=== PATIENT | female | born 1935 | race Caucasian/White ===

== ENCOUNTER → 2018-01-21 | Outpatient (CLI) | payer MEDICARE, SELFPAY ==
[2018-01-23 03:17] LABS: Source UN
== END | disposition home or self-care (01) ==
LOC: LAB 14:30
PROVIDERS: Family Medicine
DX: Z12.72 Encounter for screening for malignant neoplasm of vagina (principal); Z90.710 Acquired absence of both cervix and uterus
CPT/HCPCS: G0145

== ENCOUNTER → 2018-02-03 | Outpatient (CLI) | payer MEDICARE, SELFPAY | END | disposition home or self-care (01) | LOC: PLD 14:19 → LAB SHORT 14:19 | DX: C44.42 Squamous cell carcinoma of skin of scalp and neck (principal) | CPT/HCPCS: 88305 ==

== ENCOUNTER 2024-08-14 14:33 | Inpatient (IN) | payer OTHER ==
[~2024-08-14] VITALS: Ht 160 cm; Wt 61.6 kg
[~2024-08-14 14:33] MED LIST: ALLO300 PO; DICL75ER PO; EUTHYROX25 MC1 PO; GABA100 PO; HYDCHL25 PO; LEVE500 PO; LOSA50 PO; PANTOPRAZOLE SO40 M2 PO; ROSUVASTATIN CAL5 MG PO
[2024-08-14 15:16] LABS: BASOPHILS ABSOLUTE AUTO 0.01 K/mm3 (0.00-0.23); BASOPHILS PERCENT AUTO 0 % (0-2); EOSINOPHILS PERCENT AUTO 0 % (0-6); Hematocrit 36.7 % (33.0-51.0); Hemoglobin 12.5 g/dL (11.5-16.0); IMMATURE GRAN ABSOLUTE AUTO 0.02 K/mm3 (0.00-0.10); IMMATURE GRAN PERCENT AUTO 0 % (0-1); LYMPHOCYTES ABSOLUTE AUTO 0.13 K/mm3 (0.84-5.20); LYMPHOCYTES PERCENT AUTO 2 % (21-46); MONOCYTES ABSOLUTE AUTO 0.11 K/mm3 (0.16-1.47); MONOCYTES PERCENT AUTO 2 % (4-13); Mean Corpuscular HGB 37.1 pg (26.0-34.0); Mean Corpuscular HGB Conc 34.1 g/dL (31.5-36.5); Mean Corpuscular Volume 109 fL (80-100); Mean Platelet Volume 9.3 fL (9.1-12.4); NEUTROPHILS ABSOLUTE AUTO 6.69 K/mm3 (1.96-9.15); NEUTROPHILS PERCENT AUTO 96 % (41-73); Platelet Count 243 K/mm3 (150-400); RDW Coefficient Variation 12.6 % (11.7-14.2); RDW Standard Deviation 50.4 fL (35.1-46.3); Red Blood Cell Count 3.37 M/mm3 (3.80-5.20); White Blood Cell Count 6.96 K/mm3 (4.00-11.30)
[2024-08-14 15:29] LABS: Albumin, Blood 2.9 g/dL (3.4-5.0); Albumin/Globulin Ratio 1.1 (0.8-1.8); Bilirubin, Total 1.2 mg/dL (0.1-1.0); Bun/Creatinine Ratio 10.5 (12.0-20.0); Calcium, Blood 8.9 mg/dL (8.5-10.1); Creatinine, Blood 1.52 mg/dL (0.40-1.00); Globulin, Blood 2.7 g/dL (2.2-4.0); Potassium, Blood 3.4 mmol/L (3.5-5.5); Total Protein, Blood 5.6 g/dL (6.4-8.2)
[2024-08-14] MEDS ORDERED: NS 1,000 ML IV SCH ×3 (15:55→19:35)
[2024-08-14 17:03] LABS: Influenza A, PCR NEGATIVE (NEGATIVE); Influenza B, PCR NEGATIVE (NEGATIVE); Resp Syncytial Virus, PCR NEGATIVE (NEGATIVE); SARS-Cov-2 (COVID-19) PCR, MMC NEGATIVE (NEGATIVE)
[2024-08-14] MEDS ORDERED: Azithromycin 250 MG Tab PO ONE (17:45)
[2024-08-14] MEDS ORDERED: CefTRIAXone Sodium 1,000 MG in NS 100 ML IV ONE (17:45)
[2024-08-14] MEDS ORDERED: Ondansetron HCl 2 MG / ML 2ML Vial IV ONE (18:30)
[2024-08-14] MEDS ORDERED: Loperamide HCl 2 MG Cap PO PRN (19:35)
[2024-08-14] MEDS ORDERED: Ondansetron HCl 2 MG / ML 2ML Vial IV PRN (19:35)
[2024-08-14] MEDS ORDERED: Acetaminophen 325 MG TABLET PO PRN (19:35)
[2024-08-14] MEDS ORDERED: Ipratropium/Albuterol SulF 2.5-0.5MG/3 ML Amp INH PRN (19:40)
[2024-08-14] MEDS ORDERED: Potassium Chl 20MEQ/Water100ML 100 ML IV STA (19:41)
[2024-08-14] MEDS ORDERED: Enoxaparin 30 MG/0.3 ML SYR SC SCH (20:00)
[2024-08-14 23:09] VITALS: BP 102/51
[2024-08-15 03:14] VITALS: BP 104/46
[2024-08-15 03:40] LABS: BASOPHILS ABSOLUTE AUTO 0.02 K/mm3 (0.00-0.23); BASOPHILS PERCENT AUTO 0 % (0-2); EOSINOPHILS PERCENT AUTO 0 % (0-6); Hematocrit 30.6 % (33.0-51.0); Hemoglobin 10.5 g/dL (11.5-16.0); IMMATURE GRAN ABSOLUTE AUTO 0.06 K/mm3 (0.00-0.10); IMMATURE GRAN PERCENT AUTO 0 % (0-1); LYMPHOCYTES ABSOLUTE AUTO 0.24 K/mm3 (0.84-5.20); LYMPHOCYTES PERCENT AUTO 2 % (21-46); MONOCYTES ABSOLUTE AUTO 0.36 K/mm3 (0.16-1.47); MONOCYTES PERCENT AUTO 2 % (4-13); Mean Corpuscular HGB 36.1 pg (26.0-34.0); Mean Corpuscular HGB Conc 34.3 g/dL (31.5-36.5); Mean Corpuscular Volume 105 fL (80-100); Mean Platelet Volume 9.5 fL (9.1-12.4); NEUTROPHILS ABSOLUTE AUTO 14.98 K/mm3 (1.96-9.15); NEUTROPHILS PERCENT AUTO 96 % (41-73); Platelet Count 200 K/mm3 (150-400); RDW Coefficient Variation 12.5 % (11.7-14.2); RDW Standard Deviation 47.9 fL (35.1-46.3); Red Blood Cell Count 2.91 M/mm3 (3.80-5.20); White Blood Cell Count 15.66 K/mm3 (4.00-11.30)
[2024-08-15 04:08] LABS: Albumin, Blood 2.6 g/dL (3.4-5.0); Bilirubin, Total 0.8 mg/dL (0.1-1.0); Bun/Creatinine Ratio 16.4 (12.0-20.0); Calcium, Blood 8.2 mg/dL (8.5-10.1); Creatinine, Blood 1.4 mg/dL (0.40-1.00); Globulin, Blood 2.7 g/dL (2.2-4.0); Potassium, Blood 3.7 mmol/L (3.5-5.5); Total Protein, Blood 5.3 g/dL (6.4-8.2)
--- NOTE | 2024-08-15 05:12 | NUR ---
SHIFT SUMMARY ASSUMED CARE OF PT ON 08/14/24 AT APPROXIMATELY 2300. PT IS A&O X4, ABLE TO MAKE NEEDS KNOWN. VSS, AFEBRILE, BP STABLE, SPO2 >92% ON 1-2L NC WHILE ASLEEP. PT DENIES CP, ONLY ENDORSES SOB WITH EXERTION. NS INFUSING AT 75ML/HR. PT NPO EXCEPT FOR ICE CHIPS, WATER, AND MEDICATIONS UNTIL FURTHER NOTICE. PT IS RESTING QUIETLY IN BED, CALL LIGHT WITHIN REACH, BREATHING EVEN AND UNLABORED.
[2024-08-15] MEDS ORDERED: Levothyroxine Sodium 0.025 MG Tab PO SCH (06:00)
[2024-08-15] MEDS ORDERED: Pantoprazole Sodium 40 MG Tab PO SCH (06:00)
[2024-08-15 07:53] VITALS: BP 101/44
[2024-08-15] MEDS ORDERED: levETIRAcetam 500 MG in NS 100 ML IV SCH (09:00)
[2024-08-15] MEDS ORDERED: Allopurinol 300 MG Tab PO SCH (09:00)
[2024-08-15] MEDS ORDERED: Losartan Potassium 25 MG Tab PO SCH (09:00)
[2024-08-15 11:39] VITALS: BP 124/46
--- NOTE | 2024-08-15 14:21 | NUR ---
Transfer of care Pt alert, oriented x4; [place] and reporting macular degeneration. 1 person assist. Pt denies pain, chest pain/pressure, sob, nausea, dizziness and numb/tingling. Tele sinus, bp soft, held losartan this am, trending up. Spo2 >90% on 1-2l o2 via nc. Abd soft, nontender, +bt noted. Other vss. No other acute changes noted. Report given to oncoming rn.
[2024-08-15 17:07] VITALS: BP 131/72
[2024-08-15] MEDS ORDERED: Azithromycin 500 MG in NS 250 ML IV SCH (18:00)
[2024-08-15] MEDS ORDERED: CefTRIAXone Sodium 1,000 MG in NS 100 ML IV SCH (18:00)
--- NOTE | 2024-08-15 18:08 | NUR ---
CARE ASSUMPTION/SHIFT SUMMARY CARE ASSUMED FROM BHANU Paniagua RN, THIS AFTERNOON. PT A&OX4. SP02>90% ON RA WHILE AWAKE. DESAT TO MID 80'S WHILE SLEEPING, PLACED ON 2L NC. VSS. PT UP TO BATHROOM SBA TO VOID. ABX INFUSING PER EMAR. PT C/O OF BEING COLD, AFEBRILE. WARM BLANKET AND HEATING PAD APPLIED. PT TOOK LONG NAP THIS AFTERNOON AFTER HEAT APPLIED. PT UP IN RECLINER TO EAT LUNCH. FAMILY IN ROOM T/O DAY. CALL LIGHT IN REACH.
[2024-08-15 19:16] VITALS: BP 113/49
[2024-08-15 20:57] LABS: Source, Urine Clean Catch
[2024-08-15 21:08] LABS: Bilirubin, Urine Neg (Neg); Blood, Urine 1+ (Neg); Glucose Qualitative, Urine Neg (Neg); Ketones, Urine Neg (Neg); Leukocyte Esterase, Urine Neg (Neg); Nitrite, Urine Neg (Neg); Protein, Urine 1+ (Neg); Urobilinogen, Urine NORM (Normal)
[2024-08-15 21:13] LABS: Appearance, Urine Clear (Clear); Color, Urine Pale Yellow (P-Yellow)
[2024-08-15 21:14] LABS: Squamous Epithelial Cells Few /hpf (Few)
[2024-08-15 21:15] LABS: Bacteria Few /hpf; Hyaline Casts 0-2 /lpf (0-2)
[2024-08-15 23:23] VITALS: BP 131/54
[2024-08-16 03:00] VITALS: BP 128/108
[2024-08-16 04:10] LABS: BASOPHILS ABSOLUTE AUTO 0.02 K/mm3 (0.00-0.23); BASOPHILS PERCENT AUTO 0 % (0-2); EOSINOPHILS ABSOLUTE AUTO 0.03 K/mm3 (0.00-0.68); EOSINOPHILS PERCENT AUTO 0 % (0-6); Hematocrit 26.8 % (33.0-51.0); Hemoglobin 9.2 g/dL (11.5-16.0); IMMATURE GRAN ABSOLUTE AUTO 0.04 K/mm3 (0.00-0.10); IMMATURE GRAN PERCENT AUTO 0 % (0-1); LYMPHOCYTES PERCENT AUTO 3 % (21-46); MONOCYTES ABSOLUTE AUTO 0.33 K/mm3 (0.16-1.47); MONOCYTES PERCENT AUTO 3 % (4-13); Mean Corpuscular HGB 36.4 pg (26.0-34.0); Mean Corpuscular HGB Conc 34.3 g/dL (31.5-36.5); Mean Corpuscular Volume 106 fL (80-100); Mean Platelet Volume 9.9 fL (9.1-12.4); NEUTROPHILS ABSOLUTE AUTO 10.98 K/mm3 (1.96-9.15); NEUTROPHILS PERCENT AUTO 93 % (41-73); Platelet Count 172 K/mm3 (150-400); RDW Coefficient Variation 12.6 % (11.7-14.2); RDW Standard Deviation 49.2 fL (35.1-46.3); Red Blood Cell Count 2.53 M/mm3 (3.80-5.20)
[2024-08-16 04:35] LABS: Bun/Creatinine Ratio 22.2 (12.0-20.0); Calcium, Blood 8.3 mg/dL (8.5-10.1); Creatinine, Blood 0.99 mg/dL (0.40-1.00); Potassium, Blood 3.2 mmol/L (3.5-5.5)
--- NOTE | 2024-08-16 05:01 | NUR ---
SHIFT SUMMARY PT IS A&O X4, ABLE TO MAKE NEEDS KNOWN. VSS, AFEBRILE, BP STABLE, SPO2 >92% ON 2L NC WHILE ASLEEP. PT DENIES CP OR SOB. UA COLLECTED THIS SHIFT. PT WITHOUT N/V/D. PT IS RESTING QUIETLY IN BED, CALL LIGHT WITHIN REACH, BREATHING EVEN AND UNLABORED.
[2024-08-16 07:29] VITALS: BP 131/64
[2024-08-16] MEDS ORDERED: Potassium Chloride 20 MEQ TabCR PO ONE ×2 (08:00→18:15)
[2024-08-16 16:07] VITALS: BP 132/51
--- NOTE | 2024-08-16 17:51 | NUR ---
Shift Summary Pt alert, oriented x4; calm and cooperative with care. Up with 1 person assist to recliner and bsc. Up to chair with all meals. 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 Pt denies chest pain/pressure, sob, nausea, dizziness. Tele sinus 70-100's, 9 beat run of vtach noted. Pt refused to take potassium this am; notified Dr Trejo, discussed with patient and she is willing to take dose now; new orders entered for potassium and labs. Spo2 >90% on ra while awake, desaturates while sleeping, 1l o2 via nc while sleeping. Abd soft, nontender, + bt noted. Other vss. No other acute changes noted. Will continue to monitor.
[2024-08-16 19:48] VITALS: BP 134/61
[2024-08-16] MEDS ORDERED: Allopurinol 300 MG Tab PO SCH (21:00)
--- NOTE | 2024-08-16 21:18 | NUR ---
ASSUMPTION OF CARE AFTER RECEIVING REPORT FROM BHANU NEW, THIS RN ASSUMED CARE AT APPROX 1915. PATIENT ALERT AND ORIENTED X4. COMMUNICATES NEEDS EFFECTIVELY. REPORTS VISION DIFFICULTIES RELATED TO HX OF MACULAR DEGENERATION. MOVES ALL EXTREMITIES EQUALLY WITH GENERALIZED WEAKNESS - IS A SBA WITH FWW TO RESTROOM, CHAIR. REPOSITIONS HERSELF INDEPENDENTLY IN BED. AFEBRILE. TELEMETRY SHOWING SINUS 80s. RATE DOES INCREASE TO 100s-110s WITH MOBILITY - ASYMPTOMATIC. DENIES CHEST PAIN, PRESSURE. BP STABLE, SBP 130s. MAP >65. ON ROOM AIR AT ASSUMPTION OF CARE, SATs 88-90%. PLACED ON 2L VIA NC, SATs >90%. RR EVEN, UNLABORED. CALL LIGHT IN REACH.
[2024-08-16 21:59] LABS: Bun/Creatinine Ratio 19.5 (12.0-20.0); Calcium, Blood 8.8 mg/dL (8.5-10.1); Creatinine, Blood 0.92 mg/dL (0.40-1.00); Magnesium, Blood 1.1 mg/dL (1.6-2.4); Potassium, Blood 3.8 mmol/L (3.5-5.5)
[2024-08-16] MEDS ORDERED: Magnesium Sulf 2 GM/Water 50ML 50 ML IV ONE (22:05)
[2024-08-17 02:46] VITALS: BP 135/65
[2024-08-17 04:23] LABS: BASOPHILS ABSOLUTE AUTO 0.02 K/mm3 (0.00-0.23); BASOPHILS PERCENT AUTO 0 % (0-2); EOSINOPHILS ABSOLUTE AUTO 0.06 K/mm3 (0.00-0.68); EOSINOPHILS PERCENT AUTO 1 % (0-6); Hematocrit 26.9 % (33.0-51.0); Hemoglobin 9.3 g/dL (11.5-16.0); IMMATURE GRAN ABSOLUTE AUTO 0.05 K/mm3 (0.00-0.10); IMMATURE GRAN PERCENT AUTO 1 % (0-1); LYMPHOCYTES PERCENT AUTO 7 % (21-46); MONOCYTES PERCENT AUTO 4 % (4-13); Mean Corpuscular HGB 36.3 pg (26.0-34.0); Mean Corpuscular HGB Conc 34.6 g/dL (31.5-36.5); Mean Corpuscular Volume 105 fL (80-100); Mean Platelet Volume 10.1 fL (9.1-12.4); NEUTROPHILS ABSOLUTE AUTO 9.03 K/mm3 (1.96-9.15); NEUTROPHILS PERCENT AUTO 88 % (41-73); Platelet Count 166 K/mm3 (150-400); RDW Coefficient Variation 12.2 % (11.7-14.2); RDW Standard Deviation 47.5 fL (35.1-46.3); Red Blood Cell Count 2.56 M/mm3 (3.80-5.20); White Blood Cell Count 10.26 K/mm3 (4.00-11.30)
[2024-08-17 04:34] LABS: Bun/Creatinine Ratio 18.7 (12.0-20.0); Calcium, Blood 8.6 mg/dL (8.5-10.1); Creatinine, Blood 0.86 mg/dL (0.40-1.00); Potassium, Blood 3.7 mmol/L (3.5-5.5)
[2024-08-17 04:57] LABS: Magnesium, Blood 1.8 mg/dL (1.6-2.4)
--- NOTE | 2024-08-17 05:17 | NUR ---
SHIFT SUMMARY NO ACUTE EVENTS SINCE ASSUMPTION OF CARE NOTE. PATIENT SLEPT T/O NIGHT, EASILY AROUSABLE WITH VERBAL STIMULI. AFEBRILE. DENIES PAIN. TELEMETRY SHOWING SINUS 70s WITH RATE INCREASES TO 90s-100s WITH MOBILITY. BP STABLE, SBP 130s. DENIES CHEST PAIN, PRESSURE. MAGNESIUM LEVEL INCREASED FROM 1.1 TO 1.8 FOLLOWING 2GM IV MAGNESIUM ADMINISTERED PER EMAR. ON 2L VIA NC T/O NIGHT, SATs >90%. ATTEMPTED TO TITRATE OXYGEN USE TO BASELINE ROOM - SATs 87-89% ON ROOM AIR. UP TO RESTROOM WITH ONE PERSON, SBA WITH FWW. VOIDING. NO BM THIS SHIFT. REPOSITIONS HERSELF INDEPENDENTLY IN BED. CALL LIGHT IN REACH. WILL CONTINUE TO MONITOR AND REPORT TO ONCOMING RN.
[2024-08-17 07:37] VITALS: BP 140/64
[2024-08-17] MEDS ORDERED: Voltaren100 GM TOP (09:11)
--- NOTE | 2024-08-17 09:41 | NUR ---
ASSUMPTION OF CARE FROM BONNIE NEW THIS MORNING ABOUT 0715. THE PT WAS ON 2LNC WHILE ASLEEP. WHEN WOKEN UP HER SP02 >96%. SHE WAS TRIALED ON RA AND DESATURATED TO UPPER 80'S. THE PT WAS PLACED ON 1L NC TO MAINTAIN SP02 90-93%. SHE IS SHALLOW BREATHING AND WAS GIVEN AN INCETIVE SPIROMETER AND ENCOURAGE TO USE IS ABOUT 3 TIMES AN HOUR. THE PT WAS EDUCATED ON THE IMPORTANCE OF TAKING DEEP BREATHS, GETTING OOB, SITTING UP IN THE CHAIR FOR ALL MEALS, AND GOOD ORAL HYGIENE TO PREVENT WORSENING RESP SYMPTOMS. HER VS ARE STABLE. ON TELE SHE IS SR W/ PAC'S 90'S. THE PT REPORTS CHRONIC LEFT KNEE PAIN. SHE FAVORS HER LEFT LEG WHEN AMBUALITNG WITH THE WALKER. THE PT HAS GLASSES IN HER DISPOSITION AND HAS POOR EYESITE. VERBAL EDUCATION IS PREFERED TO WRITTEN EDUCATION. THE PT'S DAUGHTER CALLED THIS MORNING AND WAS UPDATED ON CARE. BED IN LOW AND CALL LIGHT IN REACH. SEE NOTES FOR UPDATES.
--- NOTE | 2024-08-17 11:31 | NUR ---
I SPOKE WITH DR. LESLIE ABOUT PT'S REQUIRMENT OF OXYGEN EVEN WHILE AWAKE AND CRACKLES T/O HER LUNGS. HE STATED HE WAS GOING TO PUT IN AN ORDER FOR A REPEAT CHEST XRAY.
[2024-08-17] MEDS ORDERED: VOLTAREN TOP PRN (11:35)
--- NOTE | 2024-08-17 12:38 | NUR ---
PT WILL BE TRANSFERING TO ROOM 338. HEIDE, PT'S DAUGHTER, UPDATED ON TRANSFER. THE PT REMAINS A&OX4, AND CALLS APPROPRAITELY, AND IS A 1P TX W/ FWW. SHE IS ON 1L NC WHILE AWAKE W/ SP02 >90%. WAITING ON A REPEAT CHEST XRAY AT THIS TIME. SHE IS HAVING A FLARE OF HER LEFT KNEE PAIN THIS AFTERNOON AND REQUESTED TYLENOL. THE PT'S DAUGHTER WILL BRING IN A TOPICAL PAIN RELIEF RUB THIS AFTERNOON FOR THE LEFT KNEE. ORDER OBTAINED. ON TELE SHE IS SR W/ PAC'S 90'S. NO ACUTE EVENTS THIS MORNING.
--- NOTE | 2024-08-17 13:45 | NUR ---
ASSUMED CARE AT 1345. PATIENT TRANSFERRED FROM WHEELCHAIR TO BED WELL. CURRENTLY ON 2L O2. VSS. COMPLAINS OF PAIN TO HER BACKSIDE, JUST RECEIVED APAP PRIOR TO TRANSFER. GAVE PT A WARM BLANKET. CURRENTLY RESTING IN BED. BED IN THE LOWEST POSITION. CALL LIGHT WITHIN REACH.
[2024-08-17 13:59] LABS: Magnesium, Blood 1.6 mg/dL (1.6-2.4); Phosphorus, Blood 1.6 mg/dL (2.5-4.9); Potassium, Blood 3.4 mmol/L (3.5-5.5)
[2024-08-17] MEDS ORDERED: Potassium Phos/Sodium Phos 250 MG PACK PO ONE (15:00)
[2024-08-17 16:10] VITALS: BP 154/74
[2024-08-17] MEDS ORDERED: NS 250 ML IV PRN (17:30)
[2024-08-17 20:24] VITALS: BP 144/75
[2024-08-18 02:34] VITALS: BP 139/88
--- NOTE | 2024-08-18 05:32 | NUR ---
SHIFT SUMMARY PT A&OX4 AND ANSWERS QUESTIONS APPROPRIATELY. PT RECEIVED ALL SCHEDULED MEDICATIONS. PT ABLE TO AMBULATE 1P TO THE BR. PT VSS, NO COMPLAINTS OF CP/PRESSURE OR SOB. PT SPENT MOST OF SHIFT IN BED WITH EYES CLSOED AND RESPIRATIONS EVEN AND UNLABORED. NO ACUTE EVENTS AT THIS TIME. PT REPOSITIONED INDEPENDENTLY. PT LEFT IN A POSITION OF SAFETY WITH FALL PRECAUTIONS IN PLACE AND CALL LIGHT IN REACH.
[2024-08-18 05:42] LABS: BASOPHILS ABSOLUTE AUTO 0.02 K/mm3 (0.00-0.23); BASOPHILS PERCENT AUTO 0 % (0-2); EOSINOPHILS ABSOLUTE AUTO 0.11 K/mm3 (0.00-0.68); EOSINOPHILS PERCENT AUTO 1 % (0-6); Hematocrit 27.1 % (33.0-51.0); Hemoglobin 9.5 g/dL (11.5-16.0); IMMATURE GRAN ABSOLUTE AUTO 0.03 K/mm3 (0.00-0.10); IMMATURE GRAN PERCENT AUTO 0 % (0-1); LYMPHOCYTES ABSOLUTE AUTO 0.95 K/mm3 (0.84-5.20); LYMPHOCYTES PERCENT AUTO 10 % (21-46); MONOCYTES ABSOLUTE AUTO 0.61 K/mm3 (0.16-1.47); MONOCYTES PERCENT AUTO 7 % (4-13); Mean Corpuscular HGB 35.8 pg (26.0-34.0); Mean Corpuscular HGB Conc 35.1 g/dL (31.5-36.5); Mean Corpuscular Volume 102 fL (80-100); Mean Platelet Volume 9.6 fL (9.1-12.4); NEUTROPHILS ABSOLUTE AUTO 7.66 K/mm3 (1.96-9.15); NEUTROPHILS PERCENT AUTO 82 % (41-73); Platelet Count 177 K/mm3 (150-400); RDW Coefficient Variation 12.2 % (11.7-14.2); RDW Standard Deviation 46.2 fL (35.1-46.3); Red Blood Cell Count 2.65 M/mm3 (3.80-5.20); White Blood Cell Count 9.38 K/mm3 (4.00-11.30)
[2024-08-18 06:14] LABS: Bun/Creatinine Ratio 13.3 (12.0-20.0); Calcium, Blood 8.7 mg/dL (8.5-10.1); Creatinine, Blood 0.83 mg/dL (0.40-1.00); Potassium, Blood 3.4 mmol/L (3.5-5.5)
[2024-08-18 07:58] VITALS: BP 128/67
[2024-08-18] MEDS ORDERED: Potassium Chloride 20 MEQ TabCR PO ONE (09:00)
[2024-08-18] MEDS ORDERED: LevETIRAcetam 500 MG Tab PO SCH (09:00)
[2024-08-18 13:00] LABS: Magnesium, Blood 1.2 mg/dL (1.6-2.4); Phosphorus, Blood 1.7 mg/dL (2.5-4.9); Potassium, Blood 3.5 mmol/L (3.5-5.5)
[2024-08-18 15:40] VITALS: BP 151/64
--- NOTE | 2024-08-18 18:20 | NUR ---
SHIFT SUMMARY PATIENT DENIES PAIN, NAUSEA, AND SHORTNESS OF BREATH. WEANED TO ROOM AIR, MAINTINAING OXYGEN SATURATION ABOVE 94%. VOLTAREN CREAM TO L KNEE X1. UP SBA TO BR W/FWW. ALERT AND ORIENTED. PT CHRIS COMPLETED, SBA IN ROOM W/FWW. IND AT BASELINE. INSTRUCTED IN USE OF FLUTTER VALVE.
[2024-08-18 19:16] VITALS: BP 153/80
[2024-08-18] MEDS ORDERED: Potassium Phosphate Dibasic 20 MM in Dextrose 5% 500 ML IV STA (20:19)
[2024-08-18] MEDS ORDERED: Magnesium Sulf 2 GM/Water 50ML 50 ML IV ONE (20:25)
[2024-08-18] MEDS ORDERED: GuaiFENesin 600 MG TabCR PO SCH (21:00)
[2024-08-18] MEDS ORDERED: Magnesium Oxide 400 MG Tab PO SCH (22:00)
[2024-08-19 03:40] VITALS: BP 144/69
--- NOTE | 2024-08-19 06:02 | NUR ---
Shift Summary Pt rcvd replacement IV Phosphorus and PO magnesium after I contacted the hospitalist about their low labs. No acute changes in condition t/o shift. Pt is AOx4, 1 SBA w FWW to BR. No c/o of pain or nausea. Reinforced education on incentive spirometer.
[2024-08-19 07:30] LABS: BASOPHILS ABSOLUTE AUTO 0.03 K/mm3 (0.00-0.23); BASOPHILS PERCENT AUTO 0 % (0-2); EOSINOPHILS ABSOLUTE AUTO 0.27 K/mm3 (0.00-0.68); EOSINOPHILS PERCENT AUTO 3 % (0-6); Hematocrit 26.8 % (33.0-51.0); Hemoglobin 9.5 g/dL (11.5-16.0); IMMATURE GRAN ABSOLUTE AUTO 0.05 K/mm3 (0.00-0.10); IMMATURE GRAN PERCENT AUTO 1 % (0-1); LYMPHOCYTES ABSOLUTE AUTO 1.06 K/mm3 (0.84-5.20); LYMPHOCYTES PERCENT AUTO 13 % (21-46); MONOCYTES ABSOLUTE AUTO 0.79 K/mm3 (0.16-1.47); MONOCYTES PERCENT AUTO 10 % (4-13); Mean Corpuscular HGB 36.3 pg (26.0-34.0); Mean Corpuscular HGB Conc 35.4 g/dL (31.5-36.5); Mean Corpuscular Volume 102 fL (80-100); Mean Platelet Volume 10.1 fL (9.1-12.4); NEUTROPHILS ABSOLUTE AUTO 5.79 K/mm3 (1.96-9.15); NEUTROPHILS PERCENT AUTO 72 % (41-73); Platelet Count 192 K/mm3 (150-400); RDW Coefficient Variation 12.1 % (11.7-14.2); RDW Standard Deviation 45.7 fL (35.1-46.3); Red Blood Cell Count 2.62 M/mm3 (3.80-5.20); White Blood Cell Count 7.99 K/mm3 (4.00-11.30)
[2024-08-19 07:56] VITALS: BP 124/76
[2024-08-19 08:00] LABS: Bun/Creatinine Ratio 12.6 (12.0-20.0); Calcium, Blood 8.6 mg/dL (8.5-10.1); Creatinine, Blood 0.71 mg/dL (0.40-1.00); Magnesium, Blood 1.1 mg/dL (1.6-2.4); Potassium, Blood 3.7 mmol/L (3.5-5.5)
[2024-08-19] MEDS ORDERED: Magnesium Sulf 2 GM/Water 50ML 50 ML IV ONE (11:40)
[2024-08-19 15:39] VITALS: BP 122/75
[2024-08-19 16:36] LABS: Magnesium, Blood 1.7 mg/dL (1.6-2.4)
[2024-08-19 16:39] LABS: Bun/Creatinine Ratio 12.7 (12.0-20.0); Creatinine, Blood 0.94 mg/dL (0.40-1.00); Potassium, Blood 3.7 mmol/L (3.5-5.5)
[2024-08-19] MEDS ORDERED: MAGNESIUM OXID500 MG PO (17:23)
[2024-08-19] MEDS ORDERED: CEFD300 PO (17:23)
== END 2024-08-19 17:51 | disposition home or self-care (01) | DRG 871 ==
LOC: ER 14:33 → PCU 19:03 → ERHOLD 19:03 → PCU 23:04 → MEDS 08-17 13:35
PROVIDERS: Emergency Medicine; Internal Medicine; ADMIT Internal Medicine
DX: A41.9 Sepsis, unspecified organism (principal); J18.9 Pneumonia, unspecified organism; J96.01 Acute respiratory failure with hypoxia; I95.9 Hypotension, unspecified; K21.9 Gastro-esophageal reflux disease without esophagitis; M10.9 Gout, unspecified; I12.9 Hypertensive chronic kidney disease with stage 1 through stage 4 chronic kidney disease, or unspecified chronic kidney disease; E03.9 Hypothyroidism, unspecified; E87.6 Hypokalemia; E83.42 Hypomagnesemia; E83.39 Other disorders of phosphorus metabolism; H35.30 Unspecified macular degeneration; J43.9 Emphysema, unspecified; M19.90 Unspecified osteoarthritis, unspecified site; I65.29 Occlusion and stenosis of unspecified carotid artery; K52.9 Noninfective gastroenteritis and colitis, unspecified; M71.559 Other bursitis, not elsewhere classified, unspecified hip; N18.32 Chronic kidney disease, stage 3b; Z79.899 Other long term (current) drug therapy; Z86.73 Personal history of transient ischemic attack (TIA), and cerebral infarction without residual deficits; Z98.890 Other specified postprocedural states; Z90.710 Acquired absence of both cervix and uterus; Z79.890 Hormone replacement therapy
CPT/HCPCS: 0241U; 36415; 70450; 71045; 80048; 80053; 81001; 83605; 83735; 83880; 84100; 84132; 84145; 84484; 85025; 87040; 93005; 93010; 94640; 94760; 94762; 96361; 96365; 96375; 97116; 97161; 99285-25; A9270; J0456; J0696; J1650; J1953; J2405; J3475; J3480; J7030; J7050; J7060